=== PATIENT | male | born 1955 | race Caucasian/White ===

== ENCOUNTER 2017-12-23 12:46 | Emergency (ER) | payer BC ==
--- NOTE | 2017-12-23 13:22 | EDPHYS ---
Physician Documentation [facility] Name: Carolina Johnston Age: 62 yrs Sex: Male : 1955 Arrival Date: 12/23/2017 Time: 12:50 Bed 23 Private MD: Zach Prescott ED Physician Tahir Raymond HPI: 12/23 13:13 This 62 yrs old Male presents to ER via Wheelchair with complaints of Knee gs Pain. 13:13 The patient presents with pain, that is acute. The complaints affect the posterior gs aspect of left knee and left knee. Context: The problem was sustained at home, resulted from twisting of the extremity, the patient can partially bear weight. Onset: The symptoms/episode began/occurred this morning. Modifying factors: The symptoms are alleviated by nothing. the symptoms are aggravated by weight bearing, bending knee. Associated signs and symptoms: Pertinent negatives numbness, tingling. Severity of symptoms: At their worst the symptoms were moderate, in the emergency department the symptoms are unchanged. The patient has not experienced similar symptoms in the past. Historical: - Allergies: 12:54 PENICILLINS; la1 - PMHx: 12:54 Hypertension; la1 - Immunization history:: Adult Immunizations up to date. - Social history:: Smoking status: Patient/guardian denies using tobacco. - Ebola Screening: : No symptoms or risks identified at this time. ROS: 13:13 All other systems are negative. gs Exam: 13:13 Head/Face: Normocephalic, atraumatic. Cardiovascular: Regular rate and rhythm with a gs normal S1 and S2. No gallops, murmurs, or rubs. Normal PMI, no JVD. No pulse deficits. Respiratory: Lungs have equal breath sounds bilaterally, clear to auscultation and percussion. No rales, rhonchi or wheezes noted. No increased work of breathing, no retractions or nasal flaring. Abdomen/GI: Soft, non-tender, with normal bowel sounds. No distension or tympany. No guarding or rebound. No evidence of tenderness throughout. Back: No spinal tenderness. No costovertebral tenderness. Full range of motion. Skin: Warm, dry with normal turgor. Normal color with no rashes, no lesions, and no evidence of cellulitis. Neuro: Awake and alert, GCS 15, oriented to person, place, time, and situation. Cranial nerves II-XII grossly intact. Motor strength 5/5 in all extremities. Sensory grossly intact. Cerebellar exam normal. Normal gait. 13:13 Constitutional: The patient appears alert, awake. 13:13 Musculoskeletal/extremity: Extremities: noted in the posterior aspect of left knee and left knee: tenderness, There is no evidence of deformity, swelling, Pulses: are normal with no appreciated deficits, Sensation intact. Joints: the left knee displays painful range of motion, DVT Exam: no pain, no swelling, no tenderness, negative Homans' sign noted on exam, no appreciated bluish discoloration, no erythema, no increased warmth. Vital Signs: 12:54 BP 179 / 96; Pulse 85; Resp 16; Temp 98.6; Pulse Ox 98% on R/A; Weight 95.25 kg; Height la1 5 ft. 5 in. (165.10 cm); 12:54 Body Mass Index 34.95 (95.25 kg, 165.10 cm) la1 MDM: 13:11 Patient medically screened. gs 13:13 Differential diagnosis: tendonitis. Data reviewed: vital signs, nurses notes. Response gs to treatment: the patient's symptoms have mildly improved after treatment, and as a result, I will discharge patient. 12/23 13:22 Order name: Knee Immobilizer; Complete Time: 13:35 gs Administered Medications: No medications were administered Disposition: 12/23/17 13:21 Discharged to Home. Impression: Other internal derangements of unspecified knee. - Condition is Stable. - Discharge Instructions: Knee Ligament Injury, Arthroscopy. - Prescriptions for Naprosyn 500 mg Oral Tablet - take 1 tablet by ORAL route 2 times per day for 7 days take with food; 14 tablet. Tylenol- Codeine #4 300-60 mg Oral Tablet - take 1 tablet by ORAL route every 6 hours As needed; 6 tablet. - Medication Reconciliation Form, Thank You Letter, Antibiotic Education, Prescription Opioid Use form. - Follow up: Scot Mccarty MD; When: 2 - 3 days; Reason: Re-evaluation by your physician. Signatures: Suman Peñaloza RN RN la1 Tahir Raymond MD MD Deysi Dean RN RN kr2 Corrections: (The following items were deleted from the chart) 13:40 13:21 12/23/2017 13:21 Discharged to Home. Impression: Other internal derangements of kr2 unspecified knee. Condition is Stable. Forms are Medication Reconciliation Form, Thank You Letter, Antibiotic Education, Prescription Opioid Use. Follow up: Scot Mccarty; When: 2 - 3 days; Reason: Re-evaluation by your physician. gs
--- NOTE | 2017-12-23 13:22 | ER ---
Nurse's Notes [facility] Name: Carolina Johnston Age: 62 yrs Sex: Male : 1955 Arrival Date: 12/23/2017 Time: 12:50 Bed 23 Private MD: Zach Prescott Diagnosis: Other internal derangements of unspecified knee Presentation: 12/23 12:53 Presenting complaint: Patient states: I was stepping up in to the trailer and I felt a la1 pop in my left knee and now I have a lot of pain. Transition of care: patient was not received from another setting of care. Onset of symptoms was December 23, 2017. Risk Assessment: Do you want to hurt yourself or someone else? Patient reports no desire to harm self or others. Initial Sepsis Screen: Does the patient meet any 2 criteria? No. Patient's initial sepsis screen is negative. Does the patient have a suspected source of infection? No. Patient's initial sepsis screen is negative. Care prior to arrival: None. 12:53 Method Of Arrival: Wheelchair la1 12:53 Acuity: KWAKU 4 la1 Historical: - Allergies: 12:54 PENICILLINS; la1 - PMHx: 12:54 Hypertension; la1 - Immunization history:: Adult Immunizations up to date. - Social history:: Smoking status: Patient/guardian denies using tobacco. - Ebola Screening: : No symptoms or risks identified at this time. Screenin:15 Abuse screen: Denies threats or abuse. Denies injuries from another. Nutritional kr2 screening: No deficits noted. Tuberculosis screening: No symptoms or risk factors identified. Fall Risk None identified. Assessment: 13:16 General: Appears in no apparent distress. comfortable, well groomed, well developed, kr2 well nourished, Behavior is calm, cooperative, appropriate for age. Pain: Complains of pain in posterior aspect of left knee Pain radiates to left knee Pain currently is 2 out of 10 on a pain scale. at worst was 7 out of 10 on a pain scale. Quality of pain is described as sharp, Is intermittent, Alleviated by rest, Aggravated by increased activity, repositioning. Neuro: Level of Consciousness is awake, alert, obeys commands, Oriented to person, place, time, situation. Cardiovascular: Patient's skin is warm and dry. Respiratory: Airway is patent Respiratory effort is even, unlabored, Respiratory pattern is regular, symmetrical. GI: Abdomen is flat. Derm: Skin is intact, is healthy with good turgor, Skin is pink, warm \T\ dry. Musculoskeletal: Circulation, motion, and sensation intact. Range of motion: limited in left knee No swelling or deformity. Patient reports he has mild knee pain from time to time but today he was stepping onto his tractor and felt a sharp pain behind his knee. Denies falling or trauma to knee. 13:37 Reassessment: Patient appears in no apparent distress at this time. Patient and/or kr2 family updated on plan of care and expected duration. Pain level reassessed. Patient is alert, oriented x 3, equal unlabored respirations, skin warm/dry/pink. Knee immobilizer in place as ordered. Vital Signs: 12:54 BP 179 / 96; Pulse 85; Resp 16; Temp 98.6; Pulse Ox 98% on R/A; Weight 95.25 kg; Height la1 5 ft. 5 in. (165.10 cm); 12:54 Body Mass Index 34.95 (95.25 kg, 165.10 cm) la1 ED Course: 12:50 Patient arrived in ED. sb2 12:51 Zach Prescott MD is Private Physician. sb2 12:54 Triage completed. la1 12:55 Arm band placed on right wrist. la1 13:05 Tahir Raymond MD is Attending Physician. gs 13:16 Patient has correct armband on for positive identification. Bed in low position. Call kr2 light in reach. Side rails up X 1. Pulse ox on. NIBP on. 13:20 cSot Mccarty MD is Referral Physician. gs 13:21 Warm blanket given. jp3 13:34 Knee immobilizer applied on left knee. jp3 13:39 No provider procedures requiring assistance completed. Patient did not have IV access kr2 during this emergency room visit. Administered Medications: No medications were administered Outcome: 13:21 Discharge ordered by . gs 13:39 Discharged to home ambulatory, with family. kr2 13:39 Condition: good 13:39 Discharge instructions given to patient, Instructed on discharge instructions, follow up and referral plans. no driving heavy equipment, medication usage, knee immobilizer Demonstrated understanding of instructions, follow-up care, medications, knee immobilizer Prescriptions given X 2. 13:40 Patient left the ED. kr2 Signatures: Suman Peñaloza RN RN la1 Tahir Raymond MD MD gs Reaves, Karey, RN RN kr2 Ally Moser sb2 Juan Antonio Roy jp3 Corrections: (The following items were deleted from the chart) 13:21 13:16 Pain: Complains of pain in posterior aspect of left knee Pain radiates to left kr2 knee kr2 13:40 13:39 Discharge instructions given to patient, Instructed on discharge instructions, kr2 follow up and referral plans. no driving heavy equipment, medication usage, knee immobilizer kr2
== END 2017-12-23 13:40 | disposition home or self-care (01) ==
LOC: ER 12:46
DX: M23.8X2 Other internal derangements of left knee (principal)
CPT/HCPCS: 99283

== ENCOUNTER 2024-02-23 06:42 | Day surgery (SDC) | payer OTHER ==
--- NOTE | 2024-02-20 13:47 | RAD REPORT ---
Procedure: Chest Pa And Lat (2 Views) HISTORY: Preop for cardiac catheterization COMPARISON: 2022 FINDINGS: The lungs appear clear of acute infiltrate. No significant pleural effusion noted. The heart is normal size. IMPRESSION: No acute abnormality is displayed.
[2024-02-20 13:56] LABS: PT Prothrombin Time 11.6 SECONDS (9.4-12.5); Protime INR 1.11
[2024-02-20 14:20] LABS: Absolute Eosinophils 0.1 K/uL (0-0.5); Absolute Lymphocytes (CBC) 1.2 K/uL (0.7-4.9); Absolute Monocytes 0.6 K/uL (0.1-1.3); Absolute Neutrophil 4.2 K/uL (1.8-8.0); Basophils % 0.8 % (0-1.3); Eosinophils % 1.5 % (0-4.4); Hematocrit 46.4 % (39.6-49.0); Hemoglobin 15.5 g/dL (13.6-17.9); Lymphocytes % 19.2 % (15.3-44.8); MCHC 33.5 g/dL (32.0-36.0); MCV 89.6 fL (80-100); Monocytes % 9.8 % (3.3-12.3); Neutrophils % 68.7 % (41.7-73.7); Nucleated Red Blood Cells % 0.1 % (0-0); Platelets 255 thou/uL (152-406); RBC Red Blood Cell Count 5.18 M/uL (4.33-5.43); Red Cell Distribution Width 15.1 % (12.1-15.2)
--- NOTE | 2024-02-22 11:57 | EKG ---
Test Date: 2024-02-20 Test Time: 13:57:39 Water Meter Installer: GARY MEASUREMENT RESULTS: Intervals: Rate: 74 SC: 156 QRSD: 84 QT: 380 QTc: 421 Newton: P: 59 SC: 156 QRS: 65 T: 68 INTERPRETIVE STATEMENTS: Normal sinus rhythm Normal ECG Compared to ECG 11/12/2021 12:38:55 ST (T wave) deviation no longer present Electronically Signed On 02-22-24 11:55:22 TURPENTINE DISTILLER by Tim Loving
[~2024-02-23 06:42] MED LIST: FENTANYL CITR 100 MCG/2 ML ONE; MIDAZOLAM HCL 2 MG/2 ML INJ ONE; NA CHLORIDE 0.9% 500 ML ONE
[2024-02-23] MEDS ORDERED: HEPA 1000U/500MLS 2,000 UNIT/1,000 ML BAG IV ONE (08:26)
[2024-02-23] MEDS ORDERED: NITROGLYCERIN/D5W 50 MG/250 ML BTL IV ONE (08:27)
[2024-02-23] MEDS ORDERED: LIDOCAINE 1% 20 ML MDV ONE (08:27)
[2024-02-23 11:26] VITALS: BP 144/72; O2SAT 95
--- NOTE | 2024-03-04 23:28 | OP ---
Date of Procedure: 02/23/2024 Surgeon: ALLISON ALEMAN Procedure Performed: Selective carotid angiogram bilaterally. Indication: Carotid stenosis. Access: Right common femoral artery 5-Gabonese, closed with Mynx closure device. Complications: None. Bleeding: Less than 50 mL. Anesthesia: Total sedation time is 45 minutes. Used fentanyl and Versed. Description Of Procedure: After risks, benefits, and alternatives were explained, the patient agreed to procedure and signed informed consent. The patient was brought into cardiac catheterization labo ratory, prepped and draped in a sterile fashion. Then, I accessed the right common femoral artery us ing micropuncture kit, ultrasound guidance, and fluoroscopy, placed 5-Gabonese Cottonwood sheath and took a 4-Gabonese 3DRC catheter, engaged the right common carotid, took standard views, and then engaged le ft common carotid, took standard views, and removed the catheter and the sheath. A Mynx closure mahi ce was used for closure with good hemostasis. Findings: 1.Right common carotid is normal, right external carotid is normal, and right internal carotid has m oderate disease between 60% and 70%. 2.Left common carotid is normal. Left internal carotid has 40% stenosis and left external carotid i s normal. Conclusion: Moderate carotid stenosis bilaterally. Recommendation: Medical management and close monitoring. SR/MODL Voice ID: [id number] Report ID: [id number]
== END 2024-02-23 11:25 | disposition home or self-care (01) ==
LOC: CCL 06:42
PROVIDERS: ATTEND Internal Medicine
DX: I65.23 Occlusion and stenosis of bilateral carotid arteries (principal); I25.10 Atherosclerotic heart disease of native coronary artery without angina pectoris; I10 Essential (primary) hypertension; E78.2 Mixed hyperlipidemia; Z95.1 Presence of aortocoronary bypass graft; Z87.891 Personal history of nicotine dependence; Z79.82 Long term (current) use of aspirin; Z79.899 Other long term (current) drug therapy; Z88.0 Allergy status to penicillin; Z88.8 Allergy status to other drugs, medicaments and biological substances; Z82.49 Family history of ischemic heart disease and other diseases of the circulatory system
CPT/HCPCS: 93005; 85025; 80048; 36415; 85610; 85730; 71046; 36222; 76937; C1893; J2003; J2250; J3010; J7040; C1760; 99152; 99153

== ENCOUNTER 2024-11-27 08:51 | Day surgery (SDC) | payer OTHER ==
--- NOTE | 2024-11-22 08:54 | RAD REPORT ---
Procedure: Chest Pa And Lat (2 Views) HISTORY: Preop for knee surgery COMPARISON: February 2024 FINDINGS: The lungs appear clear of acute infiltrate. No significant pleural effusion noted. The heart is mildly enlarged. IMPRESSION: No acute abnormality is displayed.
[2024-11-22 09:32] LABS: Absolute Lymphocytes (CBC) 1.1 K/uL (0.7-4.9); Hematocrit 46.9 % (39.6-49.0); Hemoglobin 16.1 g/dL (13.6-17.9); MCH 30.9 pg (27.0-35.0); MCHC 34.4 g/dL (32.0-36.0); MCV 89.8 fL (80-100); MPV 8.2 fL (7.6-11.3); Nucleated RBC Absolute Count 0.0 (0-0); Nucleated Red Blood Cells % 0.3 % (0-0); RBC Red Blood Cell Count 5.23 M/uL (4.33-5.43); White Blood Count 6.70 thou/uL (4.3-10.9)
[2024-11-22 09:49] LABS: Anion Gap 10.2 mEq/L (5.0-15.0); BUN Blood Urea Nitrogen 21.0 mg/dL (7-18); Glucose Level 101.0 mg/dL (74-106); Potassium 3.2 mEq/L (3.5-5.1)
[2024-11-22 10:04] LABS: PT Prothrombin Time 13.4 SECONDS (10-13.0); PTT, Activated Partial Thromb 37.0 SECONDS (27.2-37.4); Protime INR 1.19
[2024-11-27] MEDS: VANCOMYCIN 1 GM/VIAL ONE (09:25)
[2024-11-27] MEDS ORDERED: FENTANYL CITR 100 MCG/2 ML ONE (09:44)
[2024-11-27] MEDS ORDERED: MIDAZOLAM HCL 2 MG/2 ML INJ ONE (09:44)
[2024-11-27] MEDS: Oxycodone HCl/Acetaminophen 5/325 MG TAB ONE (10:00)
[2024-11-27] MEDS: ACETAMINOPHEN 500 MG TAB ONE (10:00)
[2024-11-27] MEDS: BUPIVACAINE 0.25% PF 30 ML VIAL ONE (10:04)
[2024-11-27] MEDS: LIDOCAINE 1% MPF 5 ML VIAL ONE (10:04)
[2024-11-27] MEDS: EPINEPHRINE 1 MG/ML VIAL ONE (10:05)
[2024-11-27] MEDS: Ringers Lactate 1,000 ML IV ONE ×2 (10:10→13:00)
[2024-11-27] MEDS: TRANEXAMIC ACID 1,000 MG/10 ML VIAL IV ONE (10:37)
[2024-11-27] MEDS ORDERED: KETAMINE HCL IN 0.9 % NACL 50 MG/5 ML SYRINGE IV ONE (11:05)
[2024-11-27] MEDS ORDERED: LIDOCAINE 2% MPF 5 ML VIAL ONE (11:05)
[2024-11-27] MEDS: DEXMEDETOMIDINE HCL 200 MCG/2 ML VIAL ONE (11:09)
[2024-11-27] MEDS: MAGNESIUM SULFATE 1 gm IVPB 1 GM/100 ML BAG IV ONE (11:11)
[2024-11-27] MEDS: CEFAZOLIN SODIUM 1 GM/VIAL ONE ×2 (12:15)
[2024-11-27] MEDS ORDERED: GLYCOPYRROLATE 0.2 MG/ML SYR ONE (13:42)
[2024-11-27] MEDS ORDERED: ACETAMINOPHEN 325 MG TABLET PO PRN (14:46)
[2024-11-27] MEDS ORDERED: ONDANSETRON 4 MG/2 ML VIAL IV PRN (14:46)
[2024-11-27] MEDS ORDERED: DOCUSATE NA 100 MG CAP PO PRN (14:46)
--- NOTE | 2024-11-27 14:46 | P.BOP ---
Preoperative diagnosis: Right knee osteoarthritis Postoperative diagnosis: Same Primary procedure: Right total knee arthroplasty Abrasive Sawyer: NONE,NONE Estimated blood loss: 50 cc Specimen: Right knee bone remnants Findings: See dictation Anesthesia: General Complications: None Implants: Biomet Christopher persona 8 CR femur, E tibia, 32 patella, 10 CR poly Fluids & blood products: Per anesthesia record Transferred to: Recovery Room Condition: Good
[2024-11-27 15:30] LABS: Hematocrit 44.5 % (39.6-49.0); Hemoglobin 15.5 g/dL (13.6-17.9)
[2024-11-27 15:53] VITALS: O2SAT 96
--- NOTE | 2024-11-27 16:31 | RAD REPORT ---
Exam:Knee Right 2 View HISTORY: Right knee surgery FINDINGS: Right knee arthroplasty has been performed. The prosthesis is in good position. No fracture or dislocation. Small radiopaque densities overlie the soft tissues upper knee.
[2024-11-27] MEDS: VANCOMYCIN 1 GM in NA CHLORIDE 0.9% 250 ML IVPB SCH (16:45)
[2024-11-27 17:05] VITALS: BMI 33.0
[2024-11-27] MEDS: CEFAZOLIN SODIUM 2 GM in NA CHLORIDE 0.9% 100 ML IVPB SCH (17:49)
[2024-11-27] MEDS: HYDROCODONE/APAP 7.5/325 MG TAB PO PRN (19:38)
[2024-11-27] MEDS: GABAPENTIN 300 MG CAP PO SCH (21:07)
[2024-11-27] MEDS: TRAMADOL HCL 50 MG TAB PO PRN (22:46)
[2024-11-28 05:02] LABS: Hematocrit 44.6 % (39.6-49.0); Hemoglobin 15.3 g/dL (13.6-17.9)
[2024-11-28] MEDS: VANCOMYCIN 1 GM in NA CHLORIDE 0.9% 250 ML IVPB SCH (05:37)
[2024-11-28] MEDS: ENOXAPARIN 30 MG/0.3 ML SQ SCH (05:37)
[2024-11-28] MEDS: DILTIAZEM HCL 120 MG SR CAP PO SCH (07:58)
[2024-11-28] MEDS: EZETIMIBE 10 MG TAB PO SCH (07:59)
[2024-11-28] MEDS: hydroCHLOROthiazide 25 MG TAB PO SCH (07:59)
[2024-11-28] MEDS: CELECOXIB 100 MG CAPSULE PO SCH (08:00)
[2024-11-28 08:56] VITALS: BP 144/79; TEMP 97.9
== END 2024-11-28 10:10 | disposition home health service (06) ==
LOC: OR 08:51 → 2ND 14:46 → OR 11-28 10:10
PROVIDERS: ATTEND Orthopaedic Surgery Sports Medicine
PROC: 0SRC0J9 Replacement of Right Knee Joint with Synthetic Substitute, Cemented, Open Approach (ICD-10-PCS; principal; 2024-11-27 11:00)
DX: M17.11 Unilateral primary osteoarthritis, right knee (principal)
CPT/HCPCS: 85025; 80048; 36415 ×2; 85610; 85730; 85018; 85014; 71046; 73560; 97139; 94010 ×2; 27447; J3490; C1776; J3475; J2704; J1100; J2003 ×2; J2250; J3010; J3373; J0169; J7120 ×2; J7050; J0690 ×2; 88305; 88311; 97116; 97161; J1650